=== PATIENT | female | born 1970 | race African-American/Black ===

== ENCOUNTER 2022-09-11 11:30 | Emergency (ER) | payer BC, OTHER ==
[2022-09-11 11:49] VITALS: BP 127/80; PULSE 70; RESP 18; TEMP 97.7; BMI 31.1
[2022-09-11] MEDS ORDERED: predniSONE 20 MG TABLET (UD) PO ONE (12:12)
[2022-09-11] MEDS ORDERED: CYCLOBENZAPRINE HCL 10 MG TABLET (FP) PO ONE (12:13)
[2022-09-11] MEDS ORDERED: predniSONE 20 MG TABLET (UD) ONE (12:17)
[2022-09-11] MEDS ORDERED: CYCLOBENZAPRINE HCL 10 MG TABLET (FP) ONE (12:17)
== END 2022-09-11 12:50 | disposition home or self-care (01) ==
LOC: JERFT 11:30
DX: M79.651 Pain in right thigh (principal); M54.50 Low back pain, unspecified; M25.661 Stiffness of right knee, not elsewhere classified
CPT/HCPCS: 99283-25